=== PATIENT | female | born 1995 | race Caucasian/White ===

== ENCOUNTER 2020-11-25 16:46 | Inpatient (IN) ==
[2020-11-25] MEDS ORDERED: Buffered Lidocaine 1% SYRIN 1 ml INTRADERM ONE (17:12)
[2020-11-25] MEDS ORDERED: Lactated Ringers 1000 ml BAG 1,000 ML IV ONE ×2 (17:12→18:22)
[2020-11-25 17:35] LABS: ABS Lymphocytes 1.9 10^3/ul (1.0-4.8); ABS Monocytes 0.9 10^3/ul (0-0.8); ABS Neutrophils 8.8 10^3/ul (1.5-7.7); Eosinophil % 0.2 %; Hematocrit 35 % (35-47); Hemoglobin 11.4 g/dL (12.0-16.0); Lymphocyte % 16.2 %; Mean Corpuscular HGB Conc 33 g/dL (31-36); Mean Corpuscular Hemoglobin 25 pg (27-31); Mean Corpuscular Volume 78 fL (80-97); Mean Platelet Volume 8.5 fL (7.4-10.4); Platelet Count 267 10^3/uL (150-450); Red Blood Count 4.48 10^6 /uL (3.70-4.87); Red Cell Distribution Width 16 % (10-15); White Blood Count 11.7 10^3/uL (3.5-10.8)
[2020-11-25] MEDS ORDERED: OBEPIDURAL 250 ML EPIDURAL ONE (17:39)
[2020-11-25] MEDS ORDERED: Lactated Ringers 1000 ml BAG 1,000 ML IV SCH ×2 (18:00→19:00)
[2020-11-25] MEDS ORDERED: Lactated Ringers 1000 ml BAG 500 ML IV PRN (18:22)
[2020-11-25] MEDS ORDERED: Sodium Citrate/Citric Acid LIQ 15 ML UDC PO PRN (18:22)
[2020-11-25] MEDS ORDERED: EPHEDrine (Pressors) 50 MG/ML VIAL IV PUSH PRN (18:22)
[2020-11-25] MEDS ORDERED: Phenylephrine 40 mcg/mL 10mL (400mcg) SYRINGE IV PUSH PRN (18:22)
[2020-11-25 18:57] LABS: Urine Appearance Clear; Urine Bilirubin Negative (Negative); Urine Blood 2+ (Negative); Urine Color Yellow; Urine Glucose Negative (Negative); Urine Ketones Negative (Negative); Urine Nitrite Negative (Negative); Urine Protein Negative (Negative); Urine Specific Gravity 1.013 (1.002-1.030); Urine Urobilinogen Negative (Negative)
[2020-11-25] MEDS ORDERED: OBEPIDURAL 250 ML EPIDURAL SCH (19:00)
[2020-11-25 19:09] LABS: Urine Benzodiazepine Screen None Detected (None Detect); Urine Cannabinoids Screen None Detected (None Detect); Urine Opiates Screen None Detected (None Detect)
[2020-11-25 19:22] LABS: Urine Bacteria Absent (Absent); Urine Red Blood Cell 3+(>10/hpf) (Absent); Urine White Blood Cell Trace(0-5/hpf) (Absent)
[2020-11-25] MEDS ORDERED: Ampicillin ADVAN 2 GM in NS 0.9% 100 ml BAG 100 ML IVPB ONE (21:58)
[2020-11-25] MEDS ORDERED: Oxytocin in LR 20 UNITS/1,000 ML BAG IVPB ONE (22:26)
[2020-11-25] MEDS ORDERED: NS 0.9% IVPB SCH (22:30)
[2020-11-25] MEDS ORDERED: GENTAMICIN ADULT IVPB SCH (22:30)
[2020-11-25] MEDS ORDERED: Glycerin ADULT 2.4 gm SUPP PR PRN (22:43)
[2020-11-25] MEDS ORDERED: Dibucaine 1% OINT 28.35 GM TUBE PR PRN (22:43)
[2020-11-25] MEDS ORDERED: Oxytocin in LR 20 UNITS/1,000 ML BAG IVPB SCH (23:00)
[2020-11-25] MEDS ORDERED: Ampicillin ADVAN 2 GM in NS 0.9% 100 ml BAG 100 ML IVPB SCH (23:00)
[2020-11-25] MEDS: Witch Hazel PAD JAR TOPICAL PRN (23:20)
[2020-11-26] MEDS ORDERED: Lidocaine 1% VIAL 10 MG/ML VIAL ONE (03:41)
[2020-11-26 06:06] LABS: ABS Monocytes 1.1 10^3/ul (0-0.8); ABS Neutrophils 11.9 10^3/ul (1.5-7.7); Eosinophil % 0.1 %; Hematocrit 25 % (35-47); Hemoglobin 8.3 g/dL (12.0-16.0); Lymphocyte % 13.3 %; Mean Corpuscular HGB Conc 33 g/dL (31-36); Mean Corpuscular Hemoglobin 26 pg (27-31); Mean Corpuscular Volume 78 fL (80-97); Mean Platelet Volume 8.2 fL (7.4-10.4); Platelet Count 196 10^3/uL (150-450); Red Blood Count 3.21 10^6 /uL (3.70-4.87); Red Cell Distribution Width 16 % (10-15); White Blood Count 15.1 10^3/uL (3.5-10.8)
[2020-11-26] MEDS ORDERED: Ondansetron 4 mg VIAL 2 MG/ML 2 ml VIAL IV ONE (10:08)
[2020-11-26] MEDS ORDERED: Iron Sucrose 200 MG in NS 0.9% 100 ml BAG 100 ML IVPB ONE (12:00)
[2020-11-26 15:55] LABS: ABS Basophils 0.1 10^3/ul (0-0.2); ABS Lymphocytes 1.1 10^3/ul (1.0-4.8); ABS Monocytes 0.1 10^3/ul (0-0.8); ABS Neutrophils 6.1 10^3/ul (1.5-7.7); Eosinophil % 0.2 %; Hematocrit 25 % (35-47); Hemoglobin 8.4 g/dL (12.0-16.0); Lymphocyte % 14.8 %; Mean Corpuscular HGB Conc 34 g/dL (31-36); Mean Corpuscular Hemoglobin 27 pg (27-31); Mean Corpuscular Volume 78 fL (80-97); Mean Platelet Volume 8.2 fL (7.4-10.4); Platelet Count 184 10^3/uL (150-450); Red Blood Count 3.15 10^6 /uL (3.70-4.87); Red Cell Distribution Width 16 % (10-15); White Blood Count 7.3 10^3/uL (3.5-10.8)
[2020-11-26] MEDS: ceFOXitin 2 GM IVPREMIX 2 GM/50 ML BAG IVPB SCH (18:12)
[2020-11-26] MEDS ORDERED: LACTATED RINGERS 1000 ML BAG IV SCH (21:00)
[2020-11-27] MEDS: ceFOXitin 2 GM IVPREMIX 2 GM/50 ML BAG IVPB SCH ×3 (02:05→18:08)
[2020-11-27] MEDS: Witch Hazel PAD JAR TOPICAL PRN (08:02)
[2020-11-27 16:17] LABS: ABS Eosinophils 0.1 10^3/ul (0-0.6); ABS Lymphocytes 1.7 10^3/ul (1.0-4.8); ABS Monocytes 0.6 10^3/ul (0-0.8); ABS Neutrophils 6.3 10^3/ul (1.5-7.7); Eosinophil % 1.4 %; Hematocrit 25 % (35-47); Hemoglobin 8.3 g/dL (12.0-16.0); Lymphocyte % 19.2 %; Mean Corpuscular HGB Conc 34 g/dL (31-36); Mean Corpuscular Hemoglobin 26 pg (27-31); Mean Corpuscular Volume 78 fL (80-97); Mean Platelet Volume 8.1 fL (7.4-10.4); Platelet Count 204 10^3/uL (150-450); Red Blood Count 3.16 10^6 /uL (3.70-4.87); Red Cell Distribution Width 17 % (10-15); White Blood Count 8.7 10^3/uL (3.5-10.8)
[2020-11-28] MEDS: ceFOXitin 2 GM IVPREMIX 2 GM/50 ML BAG IVPB SCH (04:14)
[2020-11-28 08:11] VITALS: BP 111/64
== END 2020-11-28 16:30 | disposition home or self-care (01) | DRG 806 ==
LOC: MCHOBOUT 16:46 → MCHOB 17:10
PROVIDERS: ADMIT Midwife; ATTEND Obstetrics & Gynecology